=== PATIENT | female | born 1975 | race Caucasian/White ===

== ENCOUNTER 2020-10-06 17:15 | Emergency (ER) | payer BC, SELFPAY ==
--- NOTE | ~2020-10-06 | XR_ITS ---
EXAMINATION: XR finger 1st RT min 2V EXAM DATE: 10/06/2020 18:26 INDICATION: Smashed 10/06/20. Pain Swelling PIP Jt. Since. Initial encounter. TECHNIQUE: Right 1st finger frontal, lateral and oblique projections obtained and reviewed. Comparis on is made to prior examination from 2014. FINDINGS: There are no acute right 1st finger fractures or dislocations identified. There is no subc utaneous gas. The soft tissue is unremarkable. There are no radiopaque foreign bodies. IMPRESSION: No acute osseous findings. Reviewed, dictated and finalized at location A. NG [facility] [employer] IMPRESSION: No acute osseous findings.
[2020-10-06 17:32] VITALS: BP 132/79; PULSE 84; RESP 14; O2SAT 99
--- NOTE | 2020-10-06 17:46 | ED.UPPEXIN ---
HPI - Extremity Injury (Upper) General Chief Complaint: Extremity Injury, Upper Stated Complaint: Extremity Injury, Upper Source: patient Mode of arrival: ambulatory Limitations: no limitations History of Present Illness HPI narrative: Patient is a 45-year-old female who presents with injury to right thumb. Patient reports move a refrigerator today in smashed finger between refrigerator and countertop. She reports pain with range of motion. Mild edema noted, no deformity. Patient denies taking [id number] pain medication prior to arrival. She denies other injuries. MD complaint: injury to: right and hand Related Data Home Medications Medication Instructions Recorded Confirmed buspirone 30 mg PO TID 10/06/20 10/06/20 celecoxib 200 mg PO DAILY 10/06/20 10/06/20 levothyroxine [Synthroid] 100 mcg PO DAILY 10/06/20 10/06/20 lorazepam 2 mg PO DAILY 10/06/20 10/06/20 mirabegron [Myrbetriq] 50 mg PO DAILY 10/06/20 10/06/20 tramadol 50 mg PO DAILY 10/06/20 10/06/20 Allergies Allergy/AdvReac Type Severity Reaction Status Date / Time cortisone Allergy Intermediate INJECTION Verified 10/06/20 18:01 IN KNEE FELT LIKE ON FIRE Review of Systems Review of Systems: Narrative: CONSTITUTIONAL: Denies fever, chills, or sweats. EYES: Denies visual changes, redness, or discharge. ENT: Denies rhinorrhea, congestion, sore throat, or otalgia. CARDIOVASCULAR: Denies chest pain, palpitations, or edema. RESPIRATORY: Denies cough or dyspnea. GASTROINTESTINAL: Denies abdominal pain, nausea, vomiting, or diarrhea. GENITOURINARY: Denies dysuria or hematuria. SKIN: Denies rash or itching. MUSCULOSKELETAL: Reports right thumb pain NEUROLOGIC: Denies headache, numbness, dizziness, or weakness. PSYCHIATRIC: Denies anxiety or depression. [facility] Past Medical History Medical History Abnormal uterine bleeding Anxiety Back pain Diverticulitis Epilepsy Fracture of left upper limb Hip dysplasia Hypothyroidism Irritable bowel syndrome with constipation MRSA (methicillin resistant staph aureus) culture positive Opiate use Tramadol x6 years Pneumonia Seizures Uterine fibroid Surgical History Surgical History H/O: Hx of tonsillectomy Total knee replacement status Family History Family History (Updated 10/06/20 @ 17:51 by MATILDE Cleaning) Other Heart disease Social History Social History Smoking status: Never smoker Alcohol intake: current Alcohol use details: Occasional Substance use: former Substance use type: painkillers Living arrangements: with family Occupation/Education: occupation Comments At the time of signature, I have reviewed and agree with nursing past medical, surgical, social, and family history unless otherwise noted. Please see nursing chart for further information. There is no relevant family history pertinent to the presenting complaint. Exam Narrative: Exam Narrative: GENERAL: Well-appearing, well-nourished, and in no acute distress. HEAD: Normocephalic, atraumatic. EYES: No redness or drainage. Conjunctiva are normal. ENT: Mucous membranes pink and moist. CHEST: No respiratory distress. HEART: Regular rate and rhythm. EXTREMITIES: Normal range of motion. Mild edema, ecchymosis and tenderness with palpation to right thumb. SKIN: Warm, dry, no rash. NEURO: No focal deficits. Alert and oriented x3. Gait steady. PSYCH: Normal affect. No signs of depression or anxiety. Course Vital Signs Vital signs: Vital Signs Pulse Rate 84 10/06/20 17:32 Respiratory Rate 14 10/06/20 17:32 Blood Pressure 132/79 10/06/20 17:32 Pulse Oximetry 99 10/06/20 17:32 Pulse Rate 84 10/06/20 17:32 Respiratory Rate 14 10/06/20 17:32 Blood Pressure 132/79 10/06/20 17:32 Pulse Oxime
== END 2020-10-06 18:55 | disposition home or self-care (01) ==
PROVIDERS: Emergency Provider Nurse Practitioner; PCP Physician Assistant
DX: S63.601A Unspecified sprain of right thumb, initial encounter (principal); X58.XXXA Exposure to other specified factors, initial encounter; F41.9 Anxiety disorder, unspecified; E03.9 Hypothyroidism, unspecified; Z86.16 Personal history of COVID-19; Z96.659 Presence of unspecified artificial knee joint
CPT/HCPCS: 29130; 73140; 99203; G0463

== ENCOUNTER 2022-09-05 15:38 | Outpatient (CLI) | payer OTHER, BC, SELFPAY ==
--- NOTE | ~2022-09-05 | MM_ITS ---
EXAMINATION: MM screening [facility] BI w [facility]ro HISTORY: Screening mammogram TECHNIQUE: Craniocaudal and mediolateral oblique 3-D tomosynthesis images were obtained and synthetic 2-D images were generated. CAD analysis was submitted and interpreted. COMPARISON: No prior mammogram is available for comparison at this institution. BREAST PARENCHYMAL COMPOSITION: There are scattered areas of fibroglandular density. FINDINGS: No suspicious mass, calcification, or architectural distortion are identified in either nini ast to suggest malignancy. IMPRESSION: 1. No mammographic evidence of malignancy. 2. Recommend routine screening mammography in one year. BI-RADS Category 1: Negative Reviewed, dictated and finalized at location A. PLACER
== END 2022-09-05 15:39 | disposition home or self-care (01) ==
LOC: ANHIMG 15:42
PROVIDERS: PCP Physician Assistant; Visit Provider Obstetrics & Gynecology
DX: Z12.31 Encounter for screening mammogram for malignant neoplasm of breast (principal)
CPT/HCPCS: 77063; 77067